=== PATIENT | male | born 1950 | race Caucasian/White ===

== ENCOUNTER 2021-10-15 13:07 | Emergency (ER) | payer MEDICARE ==
[~2021-10-15] VITALS: Ht 175.3 cm; Wt 79.4 kg
[2021-10-15 13:21] VITALS: BP 121/83
--- NOTE | 2021-10-15 13:25 | NUR ---
[facility] BLS TO ER BED 7
--- NOTE | 2021-10-15 14:03 | NUR ---
PT TO [facility] VIA W/C WITH JENNIFER SHELBY. MIKEL DONE
--- NOTE | 2021-10-15 14:49 | NUR ---
LAB AT BEDSIDE.
[2021-10-15 15:15] LABS: BASOPHILS % (AUTO) 0.3 % (0.0-2.0); HEMATOCRIT 38.3 % (36-52); LYMPHOCYTES # (AUTO) 0.4 K/uL (2.0-11.5); MEAN CORPUSCULAR HEMOGLOBIN 33 pg (27-31); MEAN CORPUSCULAR HGB CONC 34 g/dL (33-37); MEAN CORPUSCULAR VOLUME 96.2 fL (80-94); MONOCYTES # (AUTO) 0.3 K/uL (0.8-1.0); NEUTROPHILS # (AUTO) 8.3 K/uL (1.8-7.7); NEUTROPHILS % (AUTO) 92.7 % (42.2-75.2); PLATELET COUNT (AUTO) 164 K/uL (140-450); RED BLOOD CELL COUNT(AUTO) 3.98 MIL/uL (4.20-6.10); RED CELL DISTRIBUTION WIDTH 14.2 % (11.6-13.7); WHITE BLOOD COUNT (AUTO) 8.9 K/uL (4.8-10.8)
[2021-10-15] MEDS ORDERED: NACL 0.9% 250 ML IV ONE (15:25)
[2021-10-15 15:36] LABS: ALBUMIN 3.9 g/dL (3.4-5.0); ANION GAP 12.6 (8-16); ASPARTATE AMINOTRANSFERASE 18 U/L (15-37); CARBON DIOXIDE 27.3 mmol/L (21-32); CHLORIDE 104 mmol/L (98-107); CREATININE 0.8 mg/dL (0.6-1.3); GLUCOSE 130 mg/dL (74-106); POTASSIUM 3.9 mmol/L (3.5-5.1); SODIUM SERUM 140 mmol/L (136-145); TOTAL BILIRUBIN 0.5 mg/dL (0.0-1.0); UREA NITROGEN, BLOOD 22 mg/dL (7-18)
[2021-10-15 15:40] LABS: ACETAMINOPHEN < 0.5 ug/ml (10-30); SALICYLATE < 2.8 mg/dL (2.8-20.0)
[2021-10-15] MEDS ORDERED: HALOPERIDOL IM 5 MG/ML VIAL ONE (16:42)
[2021-10-15] MEDS ORDERED: HALOPERIDOL IM 5 MG/ML VIAL IM ONE ×2 (16:45)
[2021-10-15 17:21] LABS: APPEARANCE,URINE CLEAR (CLEAR); BILIRUBIN,URINE NEGATIVE (NEGATIVE); BLOOD, URINE TRACE-L (NEGATIVE); COLOR,URINE YELLOW (YELLOW); LEUKOCYTE ESTERASE ,URINE NEGATIVE (NEGATIVE); NITRITE, URINE NEGATIVE (NEGATIVE); PH,URINE 6.5 (5.0-9.0); UGLUCOSE 1+ (NEGATIVE)
--- NOTE | 2021-10-15 17:25 | NUR ---
CALLED PAULETTE HAWLEY [phone] MULTIPLE TIMES NO ONE ANSWER THE PHONE. LEFT V-MAIL WITH DIRECTORS AND NOTIFIED PT SISTER.
[2021-10-15 17:37] VITALS: BP 145/56
[2021-10-15 17:47] LABS: RBC,URINE 0-5 /HPF (0-5); WBC,URINE 0-5 /HPF (0-5)
[2021-10-15 17:53] LABS: BARBITURATE, URINE NEGATIVE ng/ml (NEG <=200); BENZODIAZEPINE, URINE NEGATIVE ng/mL (NEG <=200); CANNABINOID, URINE NEGATIVE ng/mL (NEG <=50); COCAINE, URINE NEGATIVE ng/mL (NEG <=300); OPIATE, URINE NEGATIVE ng/mL (NEG <=2000); PHENCYCLIDINE SCREEN,URINE NEGATIVE ng/mL (NEG <=25)
== END 2021-10-15 17:20 | disposition home or self-care (01) ==
LOC: MED 13:07
DX: G93.40 Encephalopathy, unspecified (principal); G30.9 Alzheimer's disease, unspecified; F02.80 Dementia in other diseases classified elsewhere, unspecified severity, without behavioral disturbance, psychotic disturbance, mood disturbance, and anxiety
CPT/HCPCS: 36415; 70450; 71045; 80053; 80305; 81001; 84484; 85025; 93005; 96360; 96372; 99285; G0480; G0482; J1630; J7030; 81002